=== PATIENT | female | born 1980 | race Two or more races ===

== ENCOUNTER 2020-12-04 17:21 | Emergency (ER) | payer OTHER ==
[~2020-12-04] VITALS: Ht 152.4 cm; Wt 109.0 kg
[2020-12-04 17:28] VITALS: BP 161/74
[2020-12-04] MEDS ORDERED: FAMO-63 PO (18:59)
[2020-12-04] MEDS ORDERED: METH4TAB2 PO (18:59)
--- NOTE | 2020-12-04 19:00 | ED.ADGEN ---
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 Patient did get her Covid vaccine a couple of days ago. She states that she thought maybe she was reacting to her dog and she tried to wash her blankets but this did not help. She did try to take some Benadryl last night that any relief. She has been up itching throughout the night and has been itchy all day today. She states it initially started on her arm and has progressed to her chest, back, neck, and other arm. She denies any swelling. She has not had any shortness of breath. She denies any nausea or vomiting. She denies any wheezing. She does not feel like her asthma is acting up. Review of Systems: Review of Systems: Complete ROS is negative unless otherwise documented in HPI Current Medications: Current Medications Medications (Trade) Dose Ordered Sig/Millicent Start Time Stop Time Status Last Admin Dose Admin Dexamethasone Sodium Phosphate (Decadron) 10 mg 1X ONCE 12/04/20 18:45 12/04/20 18:52 DC 12/04/20 19:14 10 MG Famotidine (Pepcid) 20 mg 1X ONCE 12/04/20 18:45 12/04/20 18:52 DC 12/04/20 19:15 20 MG Hydroxyzine HCl (Atarax) 10 mg 1X PRN 12/04/20 18:45 12/04/20 19:25 DC 12/04/20 19:15 10 MG Allergies: Allergies: Allergies Coded Allergies Type Severity Reaction Last Updated Verified fluticasone Allergy Intermediate 12/04/20 Yes salmeterol Allergy Intermediate 12/04/20 Yes Physical Exam: PE: General: Awake, alert, NAD. Well Nourished, well hydrated. Cooperative HEENT: Atraumatic, EOMI, PERRL, airway patent, moist oral mucosa Neck: Supple, trachea midline Respiratory: CTA bilaterally, normal effort, no wheezing/crackles CV: RRR, no murmur, cap refill <2 GI: Soft, nondistended, nontender, no masses MSK: No obvious deformities Skin: Warm, dry. Diffuse rash on chest, back, neck, bilateral arms with red raised lesions and excoriation rahman Neuro: A&O x3, speech NL, sensory and motor grossly intact, no focal deficits Psych: Normal affect, normal mood, not suicidal or homicidal Current Patient Data: Vital Signs: Vital Signs Date Time Temp Pulse Resp B/P (MAP) Pulse Ox O2 Delivery O2 Flow Rate FiO2 12/04/20 17:28 98.3 106 20 161/74 (103) 96 Room Air 98.3 EKG: EKG: [] Heart Score: C/O Chest Pain: N/A Risk Factors: Risk Factors: DM, Current or recent (<one month) smoker, HTN, HLP, family history of CAD, obesity. Risk Scores: Score 0 - 3: 2.5% MACE over next 6 weeks - Discharge Home Score 4 - 6: 20.3% MACE over next 6 weeks - Admit for Clinical Observation Score 7 - 10: 72.7% MACE over next 6 weeks - Early Invasive Strategies Radiology/Procedures: Radiology/Procedures: [] Course & Med Decision Making: Course & Med Decision Making Pertinent Labs and Imaging studies reviewed. (See chart for details) Patient is a 40-year-old female who presents to the Emergency Room complaining of hives and itching. Patient's presentation is concerning for an allergic reaction. At this time, patient does not or signs of shock that will require epinephrine. Patient will be treated with Decadron, Pepcid, hydroxyzine and observed here in the emergency room for any further symptoms. Patient is requesting to leave. I did write her prescriptions but she will sign out AMA. Patient has requested to leave AGAINST MEDICAL ADVICE. I have discussed the benefits of staying for a full work up and the patient would like to leave. I discussed the risks of leaving including but not limited to , permenant end-organ damage, worsening of condition and patient stated understanding. Patient signed out against medical advice. Aniya Disclaimer: Aniya Disclaimer: This electronic medical record was generated, in whole or in part, using a voice recognition dictation system. Departure Departure Impression: Primary Impression: Allergic reaction Disposition: LEFT AGAINST MEDICAL ADVICE Condition: STABLE Patient Instructions: Hives Scripts Famotidine (PEPCID) 20 Mg Tablet 20 MG PO BID for 5 Days, #10 TAB Prov: HELADIO WOOD MD 12/04/20 Methylprednisolone (MEDROL) 4 Mg Tab.ds.pk 1 PKG PO UD for inflammation, #1 PKG Prov: HELADIO WOOD MD 12/04/20 HELADIO WOOD MD Dec 04, 2020 19:00
[2020-12-04] MEDS: DEXAMETHASONE SOD PHOS 20 MG/5 ML VIAL. PO ONE (19:14)
[2020-12-04] MEDS: FAMOTIDINE 20 MG TABLET. PO ONE (19:15)
[2020-12-04] MEDS: hydrOXYzine 10 MG TABLET PO PRN (19:15)
== END 2020-12-04 19:25 | disposition home or self-care (01) ==
LOC: ER 17:21
DX: T78.40XA Allergy, unspecified, initial encounter (principal); F31.9 Bipolar disorder, unspecified; J45.909 Unspecified asthma, uncomplicated; F17.200 Nicotine dependence, unspecified, uncomplicated; Z88.8 Allergy status to other drugs, medicaments and biological substances
CPT/HCPCS: 99284; J1100

== ENCOUNTER 2021-02-17 10:28 | Emergency (ER) | payer OTHER ==
[~2021-02-17] VITALS: Ht 152.4 cm; Wt 123.8 kg
[~2021-02-17 10:28] MED LIST: FAMO-63 PO; METH4TAB2 PO
--- NOTE | 2021-02-17 10:59 | PHYS DOC ---
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 The pain is on the left side of her lower neck, associated with stiffness and spasm, hurt to move her neck. No neck injury. Patient denies any cough or fever, no headache, no upper extremity weakness and numbness. Review of Systems: Review of Systems: Constitutional: Denies fever or chills. [] Eyes: Denies change in visual acuity. [] HENT: Denies nasal congestion or sore throat. [] Respiratory: Denies cough or shortness of breath. [] Cardiovascular: Denies chest pain or edema. [] GI: Denies abdominal pain, nausea, vomiting, bloody stools or diarrhea. [] : Denies dysuria. [] Musculoskeletal: Denies back pain , positive for left-sided neck pain with muscle stiffness Integument: Denies rash. [] Neurologic: Denies headache, focal weakness or sensory changes. [] Endocrine: Denies polyuria or polydipsia. [] Lymphatic: Denies swollen glands. [] Psychiatric: Denies depression or anxiety. [] Heart Score: C/O Chest Pain: N/A Risk Factors: Risk Factors: DM, Current or recent (<one month) smoker, HTN, HLP, family history of CAD, obesity. Risk Scores: Score 0 - 3: 2.5% MACE over next 6 weeks - Discharge Home Score 4 - 6: 20.3% MACE over next 6 weeks - Admit for Clinical Observation Score 7 - 10: 72.7% MACE over next 6 weeks - Early Invasive Strategies Allergies: Allergies: Allergies Coded Allergies Type Severity Reaction Last Updated Verified fluticasone Allergy Intermediate 02/17/21 Yes salmeterol Allergy Intermediate 02/17/21 Yes Physical Exam: PE: Constitutional: Well developed, well nourished, no acute distress, non-toxic appearance. Obese HENT: Normocephalic, atraumatic, bilateral external ears normal, oropharynx moist, no oral exudates, nose normal. [] Eyes: PERRLA, EOMI, conjunctiva normal, no discharge. [] Neck: Left lower paraspinal muscle on the cervical spine is tender to palpation associated neck spasm. Cardiovascular:Heart rate regular rhythm, no murmur [] Lungs & Thorax: Bilateral breath sounds clear to auscultation [] Abdomen: Bowel sounds normal, soft, no tenderness, no masses, no pulsatile masses. [] Skin: Warm, dry, no erythema, no rash. [] Back: No tenderness, no CVA tenderness. [] Extremities: No tenderness, no cyanosis, no clubbing, ROM intact, no edema. [] Neurologic: Alert and oriented X 3, normal motor function, normal sensory function, no focal deficits noted. [] Psychologic: Affect normal, judgement normal, mood normal. [] EKG: EKG: [] Radiology/Procedures: Radiology/Procedures: [] Course & Med Decision Making: Course & Med Decision Making Pertinent Labs and Imaging studies reviewed. (See chart for details) Patient is a 41-year-old female who presented to ER due to left-sided neck pain when she woke up this morning. Patient denies injury, no upper or lower extremity weakness or numbness. Patient was given a dose of Toradol and Solu- Medrol, she will be discharged home with steroids, NSAID, muscle relaxer Aniya Disclaimer: Anyia Disclaimer: This electronic medical record was generated, in whole or in part, using a voice recognition dictation system. Departure Departure Impression: Primary Impression: Torticollis, acute Disposition: HOME / SELF CARE / HOMELESS Referrals: UNKNOWN PCP NAME (PCP) Please follow up with [facility] this week. [address], [address] [place] [address] Phone number: [phone] Patient Instructions: Torticollis, Acute Additional Instructions: Thank you for visiting our Emergency Department. We appreciate you trusting us with your care. If any additional problems come up don't hesitate to return to visit us. Please follow up with your primary care provider so they can plan additional care if needed and know about the problem that you had. If symptoms worsen come back to the Emergency Department. Any concerning symptoms that start such as chest pain, shortness of air, weakness or numbness on one side of the body, running high fevers or any other concerning symptoms return to the ER. Scripts Cyclobenzaprine Hcl (CYCLOBENZAPRINE HCL) 10 Mg Tablet 1 TAB PO TID PRN for MUSCLE SPASMS, #20 TAB Prov: FRANCHESKA REN DO 02/17/21 Prednisone (PREDNISONE) 20 Mg Tablet 1 TAB PO DAILY for 7 Days, #7 TAB Prov: FRANCHESKA REN DO 02/17/21 Naproxen Sodium (ANAPROX DS) 550 Mg Tablet 1 TAB PO BID PRN for PAIN for 15 Days, #30 TAB 0 Refills Prov: FRANCHESKA REN DO 02/17/21 FRANCHESKA REN DO Feb 17, 2021 10:59
[2021-02-17] MEDS ORDERED: NAPR-682 PO (11:05)
[2021-02-17] MEDS ORDERED: PRED20TA PO (11:05)
[2021-02-17] MEDS ORDERED: CYCL10TA2 PO (11:05)
[2021-02-17] MEDS: KETOROLAC 60 MG/2 ML VIAL. IM ONE (11:13)
[2021-02-17] MEDS: methylPREDNISolone SOD SUCC PF 125 MG/2 ML VIAL. IM ONE (11:15)
[2021-02-17 11:16] VITALS: BP 116/81
== END 2021-02-17 11:16 | disposition home or self-care (01) ==
LOC: ER 10:28
DX: M43.6 Torticollis (principal); J45.909 Unspecified asthma, uncomplicated; F31.9 Bipolar disorder, unspecified; F17.200 Nicotine dependence, unspecified, uncomplicated; Z88.8 Allergy status to other drugs, medicaments and biological substances
CPT/HCPCS: 96372; 99284; J1885; J2930